=== PATIENT | female | born 1955 | race Caucasian/White ===

== ENCOUNTER → 2020-01-13 | Outpatient (CLI) | payer OTHER ==
[~2020-01-13] MED LIST: GYNODIOL2 MG PO; HUMIRA20 MG/0.4 SUBQ; IBUPROFEN 800800 M1 PO; XANAX XR1 MG PO
== END ==
LOC: SJCVCIMAG 10:30 → SJCVC 10:30
PROVIDERS: ATTEND Internal Medicine Cardiovascular Disease
DX: I65.23 Occlusion and stenosis of bilateral carotid arteries (principal); I71.4 Abdominal aortic aneurysm, without rupture; I35.1 Nonrheumatic aortic (valve) insufficiency; I73.9 Peripheral vascular disease, unspecified; R60.0 Localized edema; M06.9 Rheumatoid arthritis, unspecified; J44.9 Chronic obstructive pulmonary disease, unspecified; F17.200 Nicotine dependence, unspecified, uncomplicated; Z79.899 Other long term (current) drug therapy; Z82.49 Family history of ischemic heart disease and other diseases of the circulatory system

== ENCOUNTER → 2020-01-27 | Outpatient (CLI) | payer OTHER | LOC: SJCVCIMAG 07:48 | PROVIDERS: ATTEND Internal Medicine Cardiovascular Disease | DX: I49.3 Ventricular premature depolarization (principal); Z79.899 Other long term (current) drug therapy ==